=== PATIENT | female | born 1955 ===

== ENCOUNTER 2020-11-13 15:44 | Observation (INO) | payer BC ==
--- NOTE | 2020-11-13 16:23 | EDM.PDOC ---
<Ebenezer Cortez - Last Filed: 11/13/20 16:20> ED HPI GENERAL MEDICAL PROBLEM - General Chief Complaint: Chest Pain Stated Complaint: CHEST PAIN Time Seen by Provider: 11/13/20 15:55 Source of Information: Reports: Patient History Limitations: Reports: No Limitations - History of Present Illness INITIAL COMMENTS - FREE TEXT/NARRATIVE: Patient is a 65-year-old female with a history of open heart surgery presents today for chest pain. Patient states the pain has been constant in nature and not made better or worse with anything. Patient has the pain radiates to her jaw. Patient took nitro have improved with pain. Patient was took aspirin his morning. Patient denies any shortness of breath fever chills cough or other symptoms. - Related Data Allergies Allergy/AdvReac Type Severity Reaction Status Date / Time bee pollen Allergy Other Verified 11/13/20 16:18 naproxen [From Aleve] Allergy Hives Verified 11/13/20 16:18 tuna oil Allergy Rash Verified 11/13/20 16:18 Home Meds: Home Meds Aspirin 81 mg PO DAILY 11/13/20 [History] Levothyroxine [Synthroid] 100 mcg PO DAILY 11/13/20 [History] atorvaSTATin [Lipitor] 20 mg PO DAILY 11/13/20 [History] ED ROS GENERAL - Review of Systems Review Of Systems: See Below Constitutional: Reports: No Symptoms HEENT: Reports: No Symptoms Respiratory: Reports: No Symptoms Cardiovascular: Reports: Chest Pain Endocrine: Reports: No Symptoms GI/Abdominal: Reports: No Symptoms : Reports: No Symptoms Musculoskeletal: Reports: No Symptoms Skin: Reports: No Symptoms Neurological: Reports: No Symptoms Psychiatric: Reports: No Symptoms Hematologic/Lymphatic: Reports: No Symptoms Immunologic: Reports: No Symptoms ED EXAM, GENERAL - Physical Exam Exam: See Below Exam Limited By: No Limitations General Appearance: Alert, WD/WN, No Apparent Distress Eye Exam: Bilateral Eye: EOMI, PERRL Respiratory/Chest: No Respiratory Distress, Lungs Clear, Normal Breath Sounds Cardiovascular: Normal Peripheral Pulses, Regular Rate, Rhythm GI/Abdominal: Normal Bowel Sounds, Soft, Non-Tender Extremities: Normal Inspection, Normal Range of Motion Neurological: Alert, Oriented, CN II-XII Intact, Normal Cognition, Normal Gait #1 Interpretation EKG Date: 11/13/20 Time: 16:05 Rhythm: NSR Rate (Beats/Min): 69 ST-T: Depressed Departure - Departure Disposition: Refer to Observation Clinical Impression: Acute coronary syndrome - Assessment/Plan Plan: Patient is a 65-year-old female who presents today for chest pain radiating to the her throat. Patient has a heart score of 4 due to age and risk factors. Cj slater EKG does not show any acute ischemic changes. Will draw labs x-ray and reassess. <Ruben Nicole - Last Filed: 11/13/20 22:45> ED HPI GENERAL MEDICAL PROBLEM - History of Present Illness INITIAL COMMENTS - FREE TEXT/NARRATIVE: Patient was signed out to me by Dr. Cortez pending repeat troponin at 7PM I did reevaluate the patient and patient states that in 2017 she was seen at outside department and was told to see a java solutions architect. She said that at that time she went to [place] where they recommended a stent placement. She states that during the stent placement there is a rupture of the vessel and they converted to open heart surgery to fix the ruptured vessel. She states that she has been doing fine since that time. She states that today she started to experience chest pain which she describes as pressure-like and in the center which was rated 8 out of 10. She states that since taking nitro and being in the emergency department her pain has decreased to 2 out of 10. She states that this pain did radiate to her jaw but denies any ration to her arms or back. She denies any diaphoresis, nausea, vomiting, syncope. She denies any numbness, tingling, weakness. She denies any other symptoms such as aneurysm or dissection. She denies any history of hypertension, diabetes mellitus. She states that she was a prior smoker but quit approximately 4 years ago. She states that this does feel similar to the last time she had chest pain and was referred to cardiology however at that time it was much more severe. She denies any recent travel, recent surgery or prior history of DVT or PE. Heart Score History: Highly Suspicious (2) ECG: Non-specific repolarization (1) Age:>65 (2) Risk Factors: 1-2 (2) Initial Troponin: </= normal limit (0) Total Score: 7 Labs reviewed CBC is unremarkable. CMP is unremarkable. Initial troponin negative. Lipase is normal. Covid is negative. Imaging reviewed chest x-ray did not reveal any acute cardiopulmonary process. Reevaluation the patient's vitals and symptoms continue to remain stable. Given her increased heart score and her history admission was discussed by prior physician with hospitalist. Given the repeat troponin is negative I did contact Dr. Peter who accepted the admission. Time: 2158 Twelve-lead EKG interpreted by myself. Normal sinus rhythm at a rate of 64beats per minute. Normal axis. ND interval is 157ms. QRS duration is 105ms. ST segments are normal without elevations or depressions. There are T wave inversions and lead V2, V3, V1, V4 no Q waves present. Hypertrophy not noted. No changes demonstrated from prior EKG dated today. Interpretation: Sinus rhythm with anterior lateral T wave inversions DISPOSITION: The patient was admitted to the hospital in stable condition CONDITION: Fair PROCEDURES: None FINAL IMPRESSION(S)/DIAGNOSES: 1. Acute chest pain, possible ACS Ruben Nicole M.D. Course - Vital Signs Last Recorded V/S: Last Vital Signs Temp 36.6 C 11/13/20 16:20 Pulse 66 11/13/20 21:30 Resp 18 11/13/20 21:30 BP 123/88 11/13/20 21:30 Pulse Ox 95 11/13/20 21:30 - Orders/Labs/Meds Orders: Active Orders 24 hr Category Date Time Status EKG 12 Lead [EKG Documentation Completion] [RC] STAT Care 11/13/20 21:15 Active EKG Documentation Completion [RC] STAT Care 11/13/20 17:15 Active TROPONIN I [CHEM] Routine Lab 11/13/20 22:31 Received Labs: Laboratory Tests 11/13/20 11/13/20 11/13/20 Range/Units 16:00 16:00 18:25 WBC 8.65 (4.0-11.0) K/uL RBC 4.42 (4.30-5.90) M/uL Hgb 13.1 (12.0-16.0) g/dL Hct 41.2 (36.0-46.0) % MCV 93.2 (80.0-98.0) fL MCH 29.6 (27.0-32.0) pg MCHC 31.8 (31.0-37.0) g/dL RDW Std Deviation 50.2 (28.0-62.0) fl RDW Coeff of Froy 15 (11.0-15.0) % Plt Count 311 (150-400) K/uL MPV 10.80 (7.40-12.00) fL Neut % (Auto) 63.5 (48.0-80.0) % Lymph % (Auto) 26.1 (16.0-40.0) % [place] % (Auto) 9.0 (0.0-15.0) % Eos % (Auto) 0.7 (0.0-7.0) % Baso % (Auto) 0.7 (0.0-1.5) % Neut # (Auto) 5.5 (1.4-5.7) K/uL Lymph # (Auto) 2.3 (0.6-2.4) K/uL [place] # (Auto) 0.8 (0.0-0.8) K/uL Eos # (Auto) 0.1 (0.0-0.7) K/uL Baso # (Auto) 0.1 (0.0-0.1) K/uL Nucleated RBC % 0.0 /100WBC Nucleated RBCs # 0 K/uL Sodium 143 (136-145) mmol/L Potassium 3.8 (3.5-5.1) mmol/L Chloride 107 (98-107) mmol/L Carbon Dioxide 26.1 (21.0-32.0) mmol/L BUN 22 H (7.0-18.0) mg/dL Creatinine 0.8 (0.6-1.0) mg/dL Est Cr Clr Drug Dosing 61.40 mL/min Estimated GFR (MDRD) > 60.0 ml/min Glucose 112 H (74-106) mg/dL Calcium 8.8 (8.5-10.1) mg/dL Magnesium 1.9 (1.8-2.4) mg/dL Total Bilirubin 0.3 (0.2-1.0) mg/dL AST 25 (15-37) IU/L ALT 40 (14-63) IU/L Alkaline Phosphatase 102 (46-116) U/L Creatine Kinase 69 (26-308) U/L Troponin I < 0.050 (0.000-0.056) ng/mL Total Protein 7.6 (6.4-8.2) g/dL Albumin 3.4 (3.4-5.0) g/dL Globulin 4.2 H (2.6-4.0) g/dL Albumin/Globulin Ratio 0.8 L (0.9-1.6) Lipase 152 (73-393) U/L SARS-CoV-2 RNA ([place]) NEGATIVE (NEGATIVE) 11/13/20 Range/Units 19:36 WBC (4.0-11.0) K/uL RBC (4.30-5.90) M/uL Hgb (12.0-16.0) g/dL Hct (36.0-46.0) % MCV (80.0-98.0) fL MCH (27.0-32.0) pg MCHC (31.0-37.0) g/dL RDW Std Deviation (28.0-62.0) fl RDW Coeff of Froy (11.0-15.0) % Plt Count (150-400) K/uL MPV (7.40-12.00) fL Neut % (Auto) (48.0-80.0) % Lymph % (Auto) (16.0-40.0) % [place] % (Auto) (0.0-15.0) % Eos % (Auto) (0.0-7.0) % Baso % (Auto) (0.0-1.5) % Neut # (Auto) (1.4-5.7) K/uL Lymph # (Auto) (0.6-2.4) K/uL [place] # (Auto) (0.0-0.8) K/uL Eos # (Auto) (0.0-0.7) K/uL Baso # (Auto) (0.0-0.1) K/uL Nucleated RBC % /100WBC Nucleated RBCs # K/uL Sodium (136-145) mmol/L Potassium (3.5-5.1) mmol/L Chloride (98-107) mmol/L Carbon Dioxide (21.0-32.0) mmol/L BUN (7.0-18.0) mg/dL Creatinine (0.6-1.0) mg/dL Est Cr Clr Drug Dosing mL/min Estimated GFR (MDRD) ml/min Glucose (74-106) mg/dL Calcium (8.5-10.1) mg/dL Magnesium (1.8-2.4) mg/dL Total Bilirubin (0.2-1.0) mg/dL AST (15-37) IU/L ALT (14-63) IU/L Alkaline Phosphatase (46-116) U/L Creatine Kinase 65 (26-308) U/L Troponin I < 0.050 (0.000-0.056) ng/mL Total Protein (6.4-8.2) g/dL Albumin (3.4-5.0) g/dL Globulin (2.6-4.0) g/dL Albumin/Globulin Ratio (0.9-1.6) Lipase (73-393) U/L SARS-CoV-2 RNA ([place]) (NEGATIVE) Departure - Departure Time of Disposition: 22:09 Condition: Fair Sepsis Event Note (ED) - Focused Exam Vital Signs: Vital Signs Temp Pulse Resp BP Pulse Ox 11/13/20 21:30 66 18 123/88 95 11/13/20 18:28 72 16 122/71 96 11/13/20 16:20 36.6 C 67 16 120/56 L 95 - My Orders Last 24 Hours: My Active Orders 11/13/20 21:15 EKG 12 Lead [EKG Documentation Completion] [RC] STAT - Assessment/Plan Last 24 Hours: My Active Orders 11/13/20 21:15 EKG 12 Lead [EKG Documentation Completion] [RC] STAT
[2020-11-13 16:39] LABS: BLOOD UREA NITROGEN,BUN 22 mg/dL (7.0-18.0); CARBON DIOXIDE,CO2 26.1 mmol/L (21.0-32.0); CHLORIDE,CL 107 mmol/L (98-107); GLUCOSE RANDOM 112 mg/dL (74-106); LIPASE 152 U/L (73-393); POTASSIUM,K 3.8 mmol/L (3.5-5.1); SODIUM,NA 143 mmol/L (136-145)
--- NOTE | 2020-11-13 17:28 | CR ---
INDICATION: chest pain x1 day TECHNIQUE: Chest 2 views. COMPARISON: None. FINDINGS: Cardiovascular and mediastinum: Heart size and vasculature are normal in caliber and appearance. Mediastinum is within normal limits. Lungs and pleural spaces: Lungs are clear. No sign of infiltrate or mass. No sign of pleural effusion. No pneumothorax. Bones and soft tissues: No significant findings. IMPRESSION: Unremarkable chest. Dictated by: Ministerio Aguirre MD @ 11/13/2020 17:26:24 (Electronically Signed)
[2020-11-13] MEDS ORDERED: Acetaminophen 325 MG Tab PO PRN (23:10)
[2020-11-13] MEDS ORDERED: Ondansetron 4 MG/2 ML SDV IVPUSH PRN (23:10)
[2020-11-13] MEDS ORDERED: Albuterol/Ipratropium 3.0-0.5 MG/3 ML Neb Soln NEB PRN (23:10)
[2020-11-13] MEDS ORDERED: atorvaSTATin 20 MG Tab PO SCH (23:15)
[2020-11-13] MEDS ORDERED: Morphine 2 MG/ML SYRINGE IVPUSH PRN (23:35)
[2020-11-14] MEDS ORDERED: Levothyroxine 100 MCG Tab PO SCH (07:00)
[2020-11-14] MEDS ORDERED: Aspirin 81 MG Tab.Chew PO SCH (09:00)
--- NOTE | 2020-11-14 13:16 | PCM.HP.2 ---
H&P History of Present Illness - General Date of Service: 11/14/20 Admit Problem/Dx: Admission Diagnosis/Problem Admission Diagnosis/Problem Chest pain - History of Present Illness Initial Comments - Free Text/Narative: LATE NOTE ENTRY DUE TO PATIENT CARE Patient is a 65 y/o F with PMH of CAD, Open heart surgery, in 2017 when she was undergoing stent placement there was a complication leading to rupture of the vessel and they converted to open heart surgery to fix the ruptured vessel. Patient states this AM she started to experience chest pain which she describes as pressure-like and in the center which was rated 8 out of 10. She states that since taking nitro and being in the emergency department her pain has decreased to 2 out of 10.Pain rasiated to the right jaw, She denies any diaphoresis, rubin sea, vomiting, syncope. She denies any numbness, tingling, weakness. She denies any other symptoms such as aneurysm or dissection. Patient is a prior smoker but quit approximately 4 years ago. Twelve-lead EKG was done, Normal sinus rhythm, ST segments are normal without elevations or depressions. There are T wave inversions and lead V2, V3, V1, V4 no Q waves present. 1st troponin was negative, patient was admitted for ACS rule out. Chest Pain Score (Numeric/FACES): 1 - Related Data Allergies/Adverse Reactions: Allergies Allergy/AdvReac Type Severity Reaction Status Date / Time bee pollen Allergy Other Verified 11/14/20 02:53 naproxen [From Aleve] Allergy Hives Verified 11/14/20 02:53 tuna oil Allergy Rash Verified 11/14/20 02:53 Home Medications: Home Meds Aspirin 81 mg PO DAILY 11/13/20 [History] Budesonide/Formoterol Fumarate [Symbicort 160-4.5 Mcg Inhaler] 2 puff INH BID 11/13/20 [History] Levothyroxine [Synthroid] 100 mcg PO DAILY 11/13/20 [History] atorvaSTATin [Lipitor] 80 mg PO BEDTIME 11/13/20 [History] Past Medical History HEENT History: Reports: Impaired Vision Cardiovascular History: Reports: High Cholesterol Respiratory History: Reports: COPD Gastrointestinal History: Reports: None Genitourinary History: Reports: None [employer] History: Reports: Musculoskeletal History: Reports: Arthritis Neurological History: Reports: None Psychiatric History: Reports: None Endocrine/Metabolic History: Reports: Hypothyroidism - Infectious Disease History Infectious Disease History: Reports: Chicken Pox, Measles - Past Surgical History Cardiovascular Surgical History: Reports: Coronary Artery Bypass Other Musculoskeletal Surgeries/Procedures:: Arthritis - knuckle of middle finger on right hand Social & Family History - Family History Family Medical History: No Pertinent Family History - Tobacco Use Tobacco Use Status *Q: Former Tobacco User Used Tobacco, but Quit: Yes Month/Year Tobacco Last Used: 2016 Second Hand Smoke Exposure: Yes - Caffeine Use Caffeine Use: Reports: Coffee - Recreational Drug Use Recreational Drug Use: No H&P Review of Systems - Review of Systems: Review Of Systems: See Below General: Denies: Fever, Chills, Malaise Pulmonary: Denies: Shortness of Breath, Wheezing Cardiovascular: Denies: Chest Pain, Palpitations, Dyspnea on Exertion Gastrointestinal: Denies: Abdominal Pain, Anorexia, Black Stool Genitourinary: Denies: Dysuria, Frequency, Burning Musculoskeletal: Denies: Neck Pain, Shoulder Pain, Arm Pain Skin: Denies: Cyanosis, Jaundice, Pallor, Diaphoresis Psychiatric: Denies: Confusion, Depression Neurological: Denies: Confusion, Dizziness, Numbness Exam - Exam Exam: See Below - Vital Signs Vital Signs: Last Vital Signs Temp 36.0 C L 11/14/20 11:10 Pulse 60 11/14/20 11:10 Resp 16 11/14/20 11:10 BP 140/78 11/14/20 11:10 Pulse Ox 95 11/14/20 11:10 Weight: 83.325 kg - Exam General: Alert, Oriented Neck: Supple, Trachea Midline Lungs: Clear to Auscultation, Normal Respiratory Effort Cardiovascular: Regular Rate, Regular Rhythm, Normal S1, Normal S2 GI/Abdominal Exam: Normal Bowel Sounds, Soft, Non-Tender - Patient Data Lab Results Last 24 hrs: Laboratory Results - last 24 hr 11/13/20 11/13/20 11/13/20 Range/Units 16:00 16:00 18:25 WBC 8.65 (4.0-11.0) K/uL RBC 4.42 (4.30-5.90) M/uL Hgb 13.1 (12.0-16.0) g/dL Hct 41.2 (36.0-46.0) % MCV 93.2 (80.0-98.0) fL MCH 29.6 (27.0-32.0) pg MCHC 31.8 (31.0-37.0) g/dL RDW Std Deviation 50.2 (28.0-62.0) fl RDW Coeff of Froy 15 (11.0-15.0) % Plt Count 311 (150-400) K/uL MPV 10.80 (7.40-12.00) fL Neut % (Auto) 63.5 (48.0-80.0) % Lymph % (Auto) 26.1 (16.0-40.0) % [place] % (Auto) 9.0 (0.0-15.0) % Eos % (Auto) 0.7 (0.0-7.0) % Baso % (Auto) 0.7 (0.0-1.5) % Neut # (Auto) 5.5 (1.4-5.7) K/uL Lymph # (Auto) 2.3 (0.6-2.4) K/uL [place] # (Auto) 0.8 (0.0-0.8) K/uL Eos # (Auto) 0.1 (0.0-0.7) K/uL Baso # (Auto) 0.1 (0.0-0.1) K/uL Nucleated RBC % 0.0 /100WBC Nucleated RBCs # 0 K/uL Sodium 143 (136-145) mmol/L Potassium 3.8 (3.5-5.1) mmol/L Chloride 107 (98-107) mmol/L Carbon Dioxide 26.1 (21.0-32.0) mmol/L BUN 22 H (7.0-18.0) mg/dL Creatinine 0.8 (0.6-1.0) mg/dL Est Cr Clr Drug Dosing 61.40 mL/min Estimated GFR (MDRD) > 60.0 ml/min Glucose 112 H (74-106) mg/dL Calcium 8.8 (8.5-10.1) mg/dL Magnesium 1.9 (1.8-2.4) mg/dL Total Bilirubin 0.3 (0.2-1.0) mg/dL AST 25 (15-37) IU/L ALT 40 (14-63) IU/L Alkaline Phosphatase 102 (46-116) U/L Creatine Kinase 69 (26-308) U/L Troponin I < 0.050 (0.000-0.056) ng/mL Total Protein 7.6 (6.4-8.2) g/dL Albumin 3.4 (3.4-5.0) g/dL Globulin 4.2 H (2.6-4.0) g/dL Albumin/Globulin Ratio 0.8 L (0.9-1.6) Lipase 152 (73-393) U/L SARS-CoV-2 RNA ([place]) NEGATIVE (NEGATIVE) 11/13/20 11/13/20 Range/Units 19:36 22:31 WBC (4.0-11.0) K/uL RBC (4.30-5.90) M/uL Hgb (12.0-16.0) g/dL Hct (36.0-46.0) % MCV (80.0-98.0) fL MCH (27.0-32.0) pg MCHC (31.0-37.0) g/dL RDW Std Deviation (28.0-62.0) fl RDW Coeff of Froy (11.0-15.0) % Plt Count (150-400) K/uL MPV (7.40-12.00) fL Neut % (Auto) (48.0-80.0) % Lymph % (Auto) (16.0-40.0) % [place] % (Auto) (0.0-15.0) % Eos % (Auto) (0.0-7.0) % Baso % (Auto) (0.0-1.5) % Neut # (Auto) (1.4-5.7) K/uL Lymph # (Auto) (0.6-2.4) K/uL [place] # (Auto) (0.0-0.8) K/uL Eos # (Auto) (0.0-0.7) K/uL Baso # (Auto) (0.0-0.1) K/uL Nucleated RBC % /100WBC Nucleated RBCs # K/uL Sodium (136-145) mmol/L Potassium (3.5-5.1) mmol/L Chloride (98-107) mmol/L Carbon Dioxide (21.0-32.0) mmol/L BUN (7.0-18.0) mg/dL Creatinine (0.6-1.0) mg/dL Est Cr Clr Drug Dosing mL/min Estimated GFR (MDRD) ml/min Glucose (74-106) mg/dL Calcium (8.5-10.1) mg/dL Magnesium (1.8-2.4) mg/dL Total Bilirubin (0.2-1.0) mg/dL AST (15-37) IU/L ALT (14-63) IU/L Alkaline Phosphatase (46-116) U/L Creatine Kinase 65 (26-308) U/L Troponin I < 0.050 < 0.050 (0.000-0.056) ng/mL Total Protein (6.4-8.2) g/dL Albumin (3.4-5.0) g/dL Globulin (2.6-4.0) g/dL Albumin/Globulin Ratio (0.9-1.6) Lipase (73-393) U/L SARS-CoV-2 RNA ([place]) (NEGATIVE) Result Diagrams: 11/13/20 16:00 11/13/20 16:00 Sepsis Event Note - Evaluation Sepsis Screening Result: No Definite Risk - Focused Exam Vital Signs: Vital Signs Temp Pulse Resp BP Pulse Ox 11/14/20 11:10 36.0 C L 60 16 140/78 95 11/14/20 07:41 36.1 C 61 15 148/64 H 94 L 11/14/20 04:00 36.6 C 61 18 133/64 94 L 11/14/20 01:40 36.2 C 63 104/65 95 - Problem List (1) Chest pain SNOMED Code(s): 16336716 ICD Code: R07.9 - CHEST PAIN, UNSPECIFIED Status: Acute (2) CAD (coronary artery disease) SNOMED Code(s): 32089883 ICD Code: I25.10 - ATHSCL HEART DISEASE OF [place] CORONARY ARTERY W/O ANG PCTRS Status: Acute Problem List Initiated/Reviewed/Updated: Yes Orders Last 24hrs: Active Orders 24 hr Category Date Time Status Admission Status [Patient Status] [ADT] Stat ADT 11/13/20 22:09 Active Ambulate [RC] ASDIRECTED Care 11/13/20 23:10 Active Antiembolic Devices [RC] PER UNIT ROUTINE Care 11/13/20 23:13 Active Oxygen Therapy [RC] PRN Care 11/13/20 23:10 Active RT Aerosol Therapy [RC] ASDIRECTED Care 11/13/20 23:13 Active Telemetry Monitoring [Cardiac Monitoring] [RC] Q8H Care 11/13/20 22:53 Active VTE/DVT Education [RC] PER UNIT ROUTINE Care 11/13/20 23:10 Active Vital Signs [RC] Q4H Care 11/13/20 23:10 Active Heart Healthy Diet [DIET] Diet 11/14/20 Breakfast Active Acetaminophen [TylenoL] Med 11/13/20 23:10 Active 650 mg PO Q4H PRN Albuterol/Ipratropium [DuoNeb 3.0-0.5 MG/3 ML] Med 11/13/20 23:10 Active 3 ml NEB Q4HRRT PRN Aspirin Med 11/14/20 09:00 Active 81 mg PO DAILY Levothyroxine [Synthroid] Med 11/14/20 07:00 Active 100 mcg PO DAILY@0700 Morphine Med 11/13/20 23:35 Active 1 mg IVPUSH Q4H PRN Ondansetron [Zofran] Med 11/13/20 23:10 Active 4 mg IVPUSH Q4H PRN atorvaSTATin [Lipitor] Med 11/14/20 21:00 Active 80 mg PO BEDTIME Sequential Compression Device [OM.PC] Per Unit Routine Oth 11/13/20 23:12 Ordered Medication Orders Acetaminophen (Acetaminophen 325 Mg Tab) 650 mg PO Q4H PRN PRN Reason: Pain (Mild 1-3)/fever Albuterol/Ipratropium (Albuterol/Ipratropium 3.0-0.5 Mg/3 Ml Neb Soln) 3 ml NEB Q4HRRT PRN PRN Reason: Shortness Of Breath/wheezing Aspirin (Aspirin 81 Mg Tab.Chew) 81 mg PO DAILY [facility] Last Admin: 11/14/20 08:20 Dose: 81 mg Documented by: DINA Cosigned by: KRISTEN Atorvastatin Calcium (Atorvastatin 40 Mg Tab) 80 mg PO BEDTIME [facility] Levothyroxine Sodium (Levothyroxine 100 Mcg Tab) 100 mcg PO DAILY@0700 [facility] Last Admin: 11/14/20 06:10 Dose: 100 mcg Documented by: ZACHARY Morphine Sulfate (Morphine 2 Mg/Ml Syringe) 1 mg IVPUSH Q4H PRN PRN Reason: Pain (severe 7-10) Ondansetron HCl (Ondansetron 4 Mg/2 Ml Sdv) 4 mg IVPUSH Q4H PRN PRN Reason: Nausea/Vomiting Assessment/Plan Comment:: 65 y/o F admitted for ACS rule out troponin have been trended x3, all negative Tele monitoring unremarkable chest pain resolved Lipids, TSH, HbA1c have been recently checked, hold off on repeating cont ASA, statin Patient will be discharged today with outpatient fu with Dr. Mcelroy for possible stress test, 2D ECHO, patient understands and is agreeable with the plan
[2020-11-14] MEDS ORDERED: atorvaSTATin 40 MG Tab PO SCH (21:00)
== END 2020-11-14 14:04 | disposition home or self-care (01) ==
LOC: MW.ED 15:44 → MW.MS 22:09
PROVIDERS: ADMIT Student in an Organized Health Care Education/Training Program; ATTEND Student in an Organized Health Care Education/Training Program
DX: R07.89 Other chest pain (principal); E78.00 Pure hypercholesterolemia, unspecified; J44.9 Chronic obstructive pulmonary disease, unspecified; E03.9 Hypothyroidism, unspecified; Z20.822 Contact with and (suspected) exposure to COVID-19; Z91.030 Bee allergy status; Z88.8 Allergy status to other drugs, medicaments and biological substances; Z91.048 Other nonmedicinal substance allergy status; Z79.82 Long term (current) use of aspirin; Z79.890 Hormone replacement therapy; Z87.891 Personal history of nicotine dependence; Z95.1 Presence of aortocoronary bypass graft
CPT/HCPCS: 36415; 71046; 80053; 82550; 83690; 83735; 84484; 85025; 87635; 93005; 99285; A9270; 93010; 99284; G0378; U0002